=== PATIENT | female | born 1990 | race Two or more races ===

== ENCOUNTER 2023-12-12 10:51 | Outpatient (CLI) | payer OTHER | END 2023-12-12 10:54 | disposition home or self-care (01) | LOC: PRENATAL 10:51 | PROVIDERS: ATTEND Obstetrics & Gynecology Maternal & Fetal Medicine | DX: O36.80X0 Pregnancy with inconclusive fetal viability, not applicable or unspecified (principal); Z36.82 Encounter for antenatal screening for nuchal translucency; Z36.9 Encounter for antenatal screening, unspecified ==

== ENCOUNTER 2024-01-28 13:37 | Outpatient (CLI) | payer OTHER | END 2024-01-28 13:38 | disposition home or self-care (01) | LOC: PRENATAL 13:37 | PROVIDERS: ATTEND Obstetrics & Gynecology Maternal & Fetal Medicine | DX: O35.3XX0 Maternal care for (suspected) damage to fetus from viral disease in mother, not applicable or unspecified (principal); O44.00 Complete placenta previa NOS or without hemorrhage, unspecified trimester; Z3A.19 19 weeks gestation of pregnancy ==

== ENCOUNTER 2024-04-16 14:57 | Outpatient (CLI) | payer OTHER | END 2024-04-16 14:59 | disposition home or self-care (01) | LOC: PRENATAL 14:57 | PROVIDERS: ATTEND Obstetrics & Gynecology Maternal & Fetal Medicine | DX: O26.849 Uterine size-date discrepancy, unspecified trimester (principal); O36.8199 Decreased fetal movements, unspecified trimester, other fetus; O24.419 Gestational diabetes mellitus in pregnancy, unspecified control; Z3A.31 31 weeks gestation of pregnancy ==

== ENCOUNTER 2024-05-21 13:44 | Outpatient (CLI) | payer OTHER ==
[~2024-05-21 13:44] MED LIST: HUMULIN N100 UNIT/2 SUBCUTANEO; INSULIN SYRING1 EA29 SUBCUTANEO
== END 2024-05-21 13:45 | disposition home or self-care (01) ==
LOC: PRENATAL 13:44
PROVIDERS: ATTEND Obstetrics & Gynecology Maternal & Fetal Medicine
DX: O26.849 Uterine size-date discrepancy, unspecified trimester (principal); O36.8199 Decreased fetal movements, unspecified trimester, other fetus; O24.419 Gestational diabetes mellitus in pregnancy, unspecified control; Z3A.36 36 weeks gestation of pregnancy

== ENCOUNTER 2024-09-26 14:50 | Emergency (ER) | payer OTHER ==
[~2024-09-26] VITALS: Ht 152.4 cm; Wt 70.8 kg
[2024-09-26 16:46] LABS: BASO % 0.5 % (0.1-1.2); EOS # 0.13 (0.04-0.54); EOS % 1.6 % (0.7-7.0); HEMATOCRIT 38.2 % (34.1-44.9); HEMOGLOBIN 13.3 g/dL (11.2-15.7); LYMPH # 2.97 (1.18-3.74); LYMPH % 37.7 % (19.3-53.1); MEAN CORPUSCULAR HEMOGLOBIN 30.2 pg (25.6-32.2); MONO # 0.67 (0.24-0.82); MONO % 8.5 % (4.7-12.5); NEUT # 4.05 (1.56-6.13); NEUT % 51.4 % (34.0-71.1); PLATELET COUNT 244 K/uL (163-369); RED BLOOD COUNT 4.41 M/uL (3.93-5.22); RED CELL DISTRIBUTION WIDTH 13.2 % (11.6-14.4)
[2024-09-26 17:13] LABS: URINE APPEARANCE Clear; URINE BILIRRUBIN Negative (NEGATIVE); URINE BLOOD Negative; URINE COLOR Yellow; URINE GLUCOSE Negative (NEGATIVE); URINE KETONE Negative (NEGATIVE); URINE LEUKOCYTE Negative; URINE NITRATE Negative; URINE PROTEIN Negative (NEGATIVE); URINE UROBILINOGEN 0.2 E.U./dl
[2024-09-26 17:16] LABS: URINE BACTERIA 392.8 uL (0.0-1933); URINE EPITHELIAL CELLS 19.6 uL (0.0-38.8); URINE RBC 2.3 uL (0.0-20.8); URINE WBC 8.3 uL (0.0-23.2)
[2024-09-26 17:21] LABS: URINE CAST 0.29 uL (0.0-1.40)
[2024-09-26 17:22] LABS: COVID-19 AG NEGATIVE (NEGATIVE)
[2024-09-26 17:23] LABS: CALCIUM 9.1 mg/dL (8.5-10.1); CREATININE SERUM 0.62 mg/dL (0.55-1.02); GFR 110.19; POTASSIUM 3.45 mEq/L (3.5-5.1)
[2024-09-26 17:24] LABS: INFLUENZA A AG NEGATIVE (NEGATIVE)
== END 2024-09-26 17:58 | disposition home or self-care (01) ==
LOC: ER 14:54
PROVIDERS: General Practice
DX: R53.1 Weakness (principal); Z20.822 Contact with and (suspected) exposure to COVID-19